=== PATIENT | male | born 1955 | race African-American/Black ===

== ENCOUNTER 2021-11-07 11:24 | Inpatient (IN) | payer BC, OTHER ==
[2021-11-07 12:23] LABS: #Basophils 0.1 10x3/uL (0.0-0.2); #Monocytes 1.2 10x3/uL (0.0-1.1); #Neutrophils 15.2 10x3/uL (1.5-8.4); %Basophils 0.3 % (0.0-2.0); %Eosinophils 0.2 % (0.0-6.0); %Lymphocytes 11.8 % (18.0-47.0); %Monocytes 6.1 % (0.0-10.0); %Neutrophils 81.3 % (40.0-75.0); Mean Corpuscular HGB CONC 36.6 g/dL (32.0-36.0); Mean Corpuscular Hemoglobin 28.2 pg (27.0-33.0); Mean Corpuscular Volume 77.1 fl (81.2-95.1); Mean Platelet Volume 9.2 fl (7.4-10.4); Platelet Count 292 10x3/uL (150-450); RBC Distribution Width 14.6 % (11.5-14.5); Red Blood Cell (RBC) Count 4.97 10x6/uL (4.32-5.72); White Blood Cell (WBC) Count 18.7 10x3/uL (3.5-10.5)
[2021-11-07 12:46] LABS: ALT (SGPT) 19 U/L (8-55); Albumin 4.2 g/dL (3.4-4.8); Alkaline Phosphatase 70 U/L (40-110); Anion Gap 20 mmol/L (10-20); BUN (Urea Nitrogen) 19 mg/dL (8.4-25.7); Bilirubin, Total 0.7 mg/dL (0.2-1.2); Calc. Creatinine Clearance 0 mL/min (70-130); Calcium 9.4 mg/dL (7.8-10.44); Carbon Dioxide 20 mmol/L (23-31); Chloride 106 mmol/L (98-107); Globulin 3.3 g/dL (2.4-3.5); Glucose 124 mg/dL (80-115); Potassium 3.7 mmol/L (3.5-5.1); Protein, Total 7.5 g/dL (5.8-8.1); Sodium 142 mmol/L (136-145)
[2021-11-07 12:50] LABS: AST (SGOT) 27 U/L (5-34); Magnesium 2.2 mg/dL (1.6-2.6)
[2021-11-07 16:02] VITALS: BMI 20.9
[2021-11-07] MEDS ORDERED: hydrALAZINE 20 MG/ML VIAL SLOW IVP PRN (16:47)
[2021-11-07] MEDS ORDERED: Aspirin 325 mg Enteric Coated Tablet PO SCH (19:26)
[2021-11-07] MEDS ORDERED: Atorvastatin Calcium 40 MG TAB PO SCH (21:00)
[2021-11-07] MEDS ORDERED: Amlodipine 5 MG TAB PO SCH (21:00)
[2021-11-08 04:35] LABS: #Basophils 0.1 10x3/uL (0.0-0.2); #Eosinphils 0.2 10x3/uL (0.0-0.5); #Monocytes 1.2 10x3/uL (0.0-1.1); %Basophils 0.5 % (0.0-2.0); %Eosinophils 1.3 % (0.0-6.0); %Lymphocytes 24.4 % (18.0-47.0); %Monocytes 7.9 % (0.0-10.0); %Neutrophils 65.4 % (40.0-75.0); Hemoglobin 12.7 g/dL (13.5-17.5); Mean Corpuscular HGB CONC 36.5 g/dL (32.0-36.0); Mean Corpuscular Hemoglobin 28.7 pg (27.0-33.0); Mean Corpuscular Volume 78.7 fl (81.2-95.1); Mean Platelet Volume 9.6 fl (7.4-10.4); Platelet Count 268 10x3/uL (150-450); RBC Distribution Width 14.3 % (11.5-14.5); Red Blood Cell (RBC) Count 4.42 10x6/uL (4.32-5.72); White Blood Cell (WBC) Count 15.2 10x3/uL (3.5-10.5)
[2021-11-08 04:50] LABS: Anion Gap 13 mmol/L (10-20); BUN (Urea Nitrogen) 20 mg/dL (8.4-25.7); Calc. Creatinine Clearance 90 mL/min (70-130); Calcium 8.9 mg/dL (7.8-10.44); Carbon Dioxide 26 mmol/L (23-31); Cardiac Risk 6.2 (Less than 4.5); Chloride 105 mmol/L (98-107); Cholesterol 204 mg/dl (< 200 Desired); Glucose 106 mg/dL (80-115); HDL Cholesterol 33 mg/dL (>60 Neg Risk); LDL Cholesterol, Calculated 152 mg/dL; Sodium 141 mmol/L (136-145); Triglycerides 94 mg/dL (Less than 150)
[2021-11-08] MEDS ORDERED: Amlodipine 5 MG TAB PO SCH (09:00)
[2021-11-08] MEDS ORDERED: Iopamidol 370 76% 100 ML VIAL ONE (10:41)
[2021-11-08] MEDS: Aspirin 325 mg Enteric Coated Tablet PO SCH (10:48)
[2021-11-08 13:27] LABS: Hemoglobin A1c 5.5 % (4.0-6.0)
[2021-11-08] MEDS: Carvedilol 3.125 MG TAB PO SCH (19:01)
[2021-11-08 19:58] LABS: Bilirubin Neg (Negative); Blood, Urine 50 (Negative); Clarity Clear (Clear); Glucose, Urine (Dipstick) Normal (Negative); Ketone, Urine Negative (Negative); Leukocyte 25 (Negative); Nitrite Negative (Negative); Protein, Urine (Dipstick) 15 mg/dl (Neg-Trace); Urobilinogen Normal mg/dL (Less than 2)
[2021-11-08 20:00] LABS: Urine Culture Reflex No No
[2021-11-08 20:14] LABS: Bacteria/HPF 1+ HPF (None Seen); Squamous Epithelial 0-3 HPF (0-3)
[2021-11-08] MEDS: Atorvastatin Calcium 40 MG TAB PO SCH (20:46)
[2021-11-09 04:44] LABS: Anion Gap 13 mmol/L (10-20); BUN (Urea Nitrogen) 18 mg/dL (8.4-25.7); Calc. Creatinine Clearance 96 mL/min (70-130); Calcium 8.8 mg/dL (7.8-10.44); Carbon Dioxide 25 mmol/L (23-31); Chloride 104 mmol/L (98-107); Glucose 106 mg/dL (80-115); Potassium 3.1 mmol/L (3.5-5.1); Sodium 139 mmol/L (136-145)
[2021-11-09 04:51] LABS: #Basophils 0.1 10x3/uL (0.0-0.2); #Eosinphils 0.3 10x3/uL (0.0-0.5); %Basophils 0.6 % (0.0-2.0); %Eosinophils 2.4 % (0.0-6.0); %Lymphocytes 29.3 % (18.0-47.0); %Monocytes 7.4 % (0.0-10.0); %Neutrophils 59.9 % (40.0-75.0); Hemoglobin 12.6 g/dL (13.5-17.5); Mean Corpuscular HGB CONC 36.2 g/dL (32.0-36.0); Mean Corpuscular Hemoglobin 28.2 pg (27.0-33.0); Mean Corpuscular Volume 77.9 fl (81.2-95.1); Mean Platelet Volume 9.5 fl (7.4-10.4); Platelet Count 262 10x3/uL (150-450); RBC Distribution Width 14.1 % (11.5-14.5); Red Blood Cell (RBC) Count 4.47 10x6/uL (4.32-5.72); White Blood Cell (WBC) Count 13.3 10x3/uL (3.5-10.5)
[2021-11-09] MEDS ORDERED: Potassium Chloride 20 MEQ TAB PO SCH (09:00)
[2021-11-09] MEDS: Carvedilol 3.125 MG TAB PO SCH ×2 (09:00→17:17)
[2021-11-09] MEDS: Aspirin 325 mg Enteric Coated Tablet PO SCH (09:00)
[2021-11-09] MEDS: Amlodipine 10 MG TAB PO SCH (09:00)
[2021-11-09] MEDS: cefTRIAXone\\ROCEPHIN 1 GM in Sodium Chloride 0.9% 100 ML IVPB SCH (14:42)
[2021-11-09] MEDS: Atorvastatin Calcium 40 MG TAB PO SCH (21:13)
[2021-11-10] MEDS: Amlodipine 10 MG TAB PO SCH (08:52)
[2021-11-10] MEDS: Carvedilol 3.125 MG TAB PO SCH ×2 (08:52→16:35)
[2021-11-10] MEDS: Aspirin 325 mg Enteric Coated Tablet PO SCH (08:53)
[2021-11-10] MEDS: cefTRIAXone\\ROCEPHIN 1 GM in Sodium Chloride 0.9% 100 ML IVPB SCH (12:56)
[2021-11-10] MEDS ORDERED: Acetaminophen 325 MG TAB PO PRN (21:05)
[2021-11-10] MEDS: Atorvastatin Calcium 40 MG TAB PO SCH (21:21)
[2021-11-11 04:45] LABS: #Basophils 0.1 10x3/uL (0.0-0.2); #Eosinphils 0.4 10x3/uL (0.0-0.5); #Neutrophils 8.2 10x3/uL (1.5-8.4); %Basophils 0.7 % (0.0-2.0); %Eosinophils 2.7 % (0.0-6.0); %Lymphocytes 26.1 % (18.0-47.0); %Monocytes 7.6 % (0.0-10.0); %Neutrophils 62.6 % (40.0-75.0); Mean Corpuscular HGB CONC 35.7 g/dL (32.0-36.0); Mean Corpuscular Hemoglobin 28.1 pg (27.0-33.0); Mean Corpuscular Volume 78.7 fl (81.2-95.1); Mean Platelet Volume 9.6 fl (7.4-10.4); Platelet Count 262 10x3/uL (150-450); RBC Distribution Width 14.4 % (11.5-14.5); Red Blood Cell (RBC) Count 4.27 10x6/uL (4.32-5.72); White Blood Cell (WBC) Count 13.2 10x3/uL (3.5-10.5)
[2021-11-11 05:00] LABS: Anion Gap 13 mmol/L (10-20); BUN (Urea Nitrogen) 17 mg/dL (8.4-25.7); Calc. Creatinine Clearance 104 mL/min (70-130); Calcium 8.6 mg/dL (7.8-10.44); Carbon Dioxide 24 mmol/L (23-31); Chloride 107 mmol/L (98-107); Glucose 103 mg/dL (80-115); Potassium 3.4 mmol/L (3.5-5.1); Sodium 141 mmol/L (136-145)
[2021-11-11] MEDS: cefTRIAXone\\ROCEPHIN 1 GM in Sodium Chloride 0.9% 100 ML IVPB SCH (11:41)
[2021-11-11] MEDS: Aspirin 325 mg Enteric Coated Tablet PO SCH (11:43)
[2021-11-11] MEDS: Carvedilol 3.125 MG TAB PO SCH ×2 (11:43→17:58)
[2021-11-11] MEDS: Amlodipine 10 MG TAB PO SCH (11:43)
[2021-11-11] MEDS: Atorvastatin Calcium 40 MG TAB PO SCH (20:16)
[2021-11-12] MEDS ORDERED: Potassium Chloride 20 MEQ TAB PO SCH (08:00)
[2021-11-12] MEDS: Amlodipine 10 MG TAB PO SCH (10:29)
[2021-11-12] MEDS: Carvedilol 3.125 MG TAB PO SCH ×2 (10:29→16:15)
[2021-11-12] MEDS: Aspirin 325 mg Enteric Coated Tablet PO SCH (10:29)
[2021-11-12] MEDS: Atorvastatin Calcium 40 MG TAB PO SCH (20:37)
[2021-11-13] MEDS: Amlodipine 10 MG TAB PO SCH (08:56)
[2021-11-13] MEDS: Carvedilol 3.125 MG TAB PO SCH ×2 (08:57→17:28)
[2021-11-13] MEDS: Aspirin 325 mg Enteric Coated Tablet PO SCH (08:58)
[2021-11-13] MEDS: Atorvastatin Calcium 40 MG TAB PO SCH (20:35)
[2021-11-14] MEDS: Carvedilol 3.125 MG TAB PO SCH (08:53)
[2021-11-14] MEDS: Amlodipine 10 MG TAB PO SCH (08:53)
[2021-11-14] MEDS: Aspirin 325 mg Enteric Coated Tablet PO SCH (08:53)
[2021-11-14 16:43] VITALS: BP 134/79; TEMP 97.4
== END 2021-11-14 17:05 | DRG 65 ==
LOC: CSHERS 11:24 → CSHTELE 14:42 → OBSVTOIN 11-08 13:51 → CSHTELE 11-10 16:21
PROVIDERS: ADMIT Internal Medicine; ATTEND Family Medicine
DX: I63.9 Cerebral infarction, unspecified (principal); G81.91 Hemiplegia, unspecified affecting right dominant side; N39.0 Urinary tract infection, site not specified; F20.9 Schizophrenia, unspecified; F17.210 Nicotine dependence, cigarettes, uncomplicated; R47.81 Slurred speech; D72.829 Elevated white blood cell count, unspecified; E78.5 Hyperlipidemia, unspecified; I11.9 Hypertensive heart disease without heart failure; Z20.822 Contact with and (suspected) exposure to COVID-19
CPT/HCPCS: 36415; 36416; 70450; 70496; 70498; 70551; 71045; 80048; 80053; 80061; 81001; 83036; 83735; 83880; 84484; 85025; 86140; 87040; 87086; 93005; 93306; G0378; J0696; J3490; Q9967; U0003; U0005